=== PATIENT | male | born 1995 | race Caucasian/White ===

== ENCOUNTER 2017-02-07 17:56 | Inpatient (IN) | payer OTHER ==
[~2017-02-07] VITALS: Ht 190.5 cm; Wt 74.8 kg
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
--- NOTE | ~2017-02-07 | PN ---
Unit #: [id number] #: [id number] Patient: WESTON COULTER [id number] [facility] [address] [place] [address] [id number] MR#: [id number] NAME: WESTON COULTER ROOM: P183 Age: 21 Sex: M Admission Date: 02/07/2017 : 1995 Attending Physician: Talha Fuchs M.D. Admitting Physician: Talha Fuchs M.D. Primary Care Physician: Primary Care Physician Angie VILLEGAS PROGRESS NOTES DATE OF SERVICE: 02/10/2017 SUBJECTIVE Mr. Coulter is a 21-year-old white male, who was seen today and chart was reviewed, and case was discussed with the staff. He has been anxious, withdrawn, and rather seclusive to himself. He has been calm and cooperative with treatment recommendation and has been taking medications and tolerating them fairly well with no reported side effects. MENTAL STATUS EXAMINATION Young white male, who was casually dressed with a fair personal hygiene and appears to be in no acute distress or discomfort. He was awake and alert on interaction with intact orientation. His mood was anxious with a congruent affect. He denies any suicidal or homicidal ideations. His insight and judgment remain slightly impaired. TREATMENT PLAN 1. We will continue him on his current medications and treatment protocol. We will monitor his response to the medication and make further adjustments as needed. 2. We will continue to follow up. Dictated by... Alexis Ghosh/anam TD: 02/13/2017 01:10 JOB #: [id number] [facility] PROGRESS NOTES Page 1 of 1 X Talha Fuchs MD X PROGRESS NOTE
--- NOTE | ~2017-02-07 | PN ---
Unit #: [id number] #: [id number] Patient: WESTON COULTER [id number] [facility] [address] [place] [address] [id number] I MR#: [id number] NAME: WESTON COULTER ROOM: 83 Age: 21 Sex: M Admission Date: 02/07/2017 : 1995 Attending Physician: Talha Fuchs M.D. Admitting Physician: Talha Fuchs M.D. Primary Care Physician: Primary Care Physician Angie VILLEGAS PROGRESS NOTES DATE February 09, 2017 DISCUSSION Mr. Coulter is a 21-year-old white male, who was seen today and chart was reviewed and the case was discussed with the staff. He has been anxious, withdrawn, and rather seclusive to himself. Meanwhile, he has been cooperative with the treatment recommendations and he has been taking the medications and tolerating them fairly well. MENTAL STATUS EXAMINATION Young white male, who was casually dressed with fair personal hygiene and appears to be in no acute distress or discomfort. He was awake and alert on interaction with intact orientation. His mood is anxious with a congruent affect. He denies any suicidal or homicidal ideations. His insight and judgment remain slightly impaired. TREATMENT PLAN 1. We will continue him on his current medications and treatment protocol, and will monitor his response to the medications, and make further adjustments as needed. 2. We will continue to followup. Dictated by... Alexis Ghosh/josiah TD: 02/11/2017 10:51 JOB #: [id number] Unit #: [id number] #: [id number] Patient: WESTON COULTER PROGRESS NOTES Page 1 of 1 X Talha Fuchs MD PROGRESS NOTE
--- NOTE | ~2017-02-07 | DS ---
Unit #: [id number] #: [id number] Patient: WESTON COULTER [id number] [facility] [address] [place] [address] [id number] I MR#: [id number] NAME: WESTON COULTER ROOM: 83 Age: 21 Sex: M Admission Date: 02/07/2017 : 1995 Discharge Date: 02/11/2017 Attending Physician: Talha Fuchs M.D. Primary Care Physician: Primary Care Physician No DISCHARGE SUMMARY IDENTIFYING DATA Mr. Coulter is a 21-year-old single white male, who is a resident of [place], [place], and was self-referred to the hospital on a voluntary basis. DISCHARGE DIAGNOSES Psychiatric: Major depressive disorder, recurrent, moderate, without psychotic features; cocaine dependence, moderate. Medical: None. Stressors: Mild psychosocial stressors. HISTORY OF PRESENT ILLNESS Please see initial psychiatric evaluation for details. PAST PSYCHIATRIC HISTORY Please see initial psychiatric evaluation for details. PAST MEDICAL HISTORY Please see initial psychiatric evaluation for details. HOSPITAL COURSE The [facility] and was oriented to the hospital environment. Routine p.r.n. medications were initiated, and he was started back on his home medications and medications were adjusted and he was started on Wellbutrin and BuSpar to help with depression and anxiety and was closely monitored. He was taking the medications regularly and was tolerating them fairly well and able to come out of the detox without any complications and was willing to continue treatment on an outpatient basis and as such, it was decided that he will be kept on his current medications and will be discharged home and will continue treatment on an outpatient basis. DISCHARGE MEDICATIONS Wellbutrin XL 150 mg in the morning for depression, and BuSpar 10 mg b.i.d. for anxiety. DISCHARGE CONDITION Stable. PROGNOSIS Fair. Dictated by... Unit #: [id number] #: [id number] Patient: WESTON COULTER Alexis Ghosh/adelsol TD: 02/11/2017 06:37 JOB #: [id number] DISCHARGE SUMMARY Page 1 of 1 X Talha Fuchs MD DISCHARGE SUMMARY
[2017-02-08 09:42] LABS: BASOPHIL% 0.6 % (0-2.5); EOSINOPHIL# 0.1 X10e3 (0-0.7); EOSINOPHIL% 0.9 % (0.0-7.0); HEMATOCRIT 43.7 % (38.0-50.0); LYMPHOCYTE# 1.5 X10e3 (1.0-3.5); LYMPHOCYTE% 18.7 % (17.0-45.0); MEAN CORPUSCULAR HEMOGLOBIN 32.4 PG (28-34); MEAN CORPUSCULAR HGB CONC 34.4 g/dL (30-36); MEAN PLATELET VOLUME 7.6 FL (6.5-11.5); MONOCYTE# 0.8 X10e3 (0-1.0); MONOCYTE% 9.9 % (3.0-12.0); NEUTROPHIL# 5.6 X10e3 (1.5-7.1); NEUTROPHIL% 69.9 % (40-75); PLATELET COUNT 264 X10e3 (140-420); RED BLOOD COUNT 4.64 X10e (3.90-5.60)
[2017-02-08 09:50] LABS: DIFF IND NO
[2017-02-08 10:03] LABS: ALBUMIN SERUM 4.5 g/dL (3.5-5.0); BILIRUBIN,TOTAL 1.3 mg/dL (0.2-2.0); BUN/CREATININE RATIO 14.54; CALCIUM SERUM 9.5 mg/dL (8.4-10.2); CREATININE SERUM 1.1 mg/dL (0.6-1.4); GLOM FILT RATE Estimated 96.1 mL/min (>60); POTASSIUM 4.3 mmol/L (3.5-5.1); PROTEIN TOTAL SERUM 7.6 g/dL (6.0-8.3)
[2017-02-09 09:46] LABS: URINE APPEARANCE CLEAR; URINE BILIRUBIN NEG (NEG); URINE BLOOD NEG (NEG); URINE COLOR YELLOW; URINE GLUCOSE NEG (NEG); URINE KETONE NEG (NEG); URINE LEUKOCYTE ESTERASE NEG (NEG); URINE NITRATE NEG (NEG); URINE PH 7.5 (5-8); URINE PROTEIN NEG (NEG); URINE SPECIFIC GRAVITY 1.007 (1.003-1.035)
[2017-02-09 09:56] LABS: AMPHETAMINE NEG (NEG); BARBITURATES NEG (NEG); BENZODIAZEPINES NEG (NEG); COCAINE NEG (NEG); MARIJUANA POS (NEG); OPIATES NEG (NEG); TRICYCLIC ANTIDEPRESSANTS NEG (NEG); U METHADONE NEG (NEG)
== END 2017-02-11 10:45 | DRG 885 ==
LOC: P1E 20:01
PROVIDERS: Psychiatry & Neurology Psychiatry
PROC: HZ2ZZZZ Detoxification Services for Substance Abuse Treatment (ICD-10-PCS; principal; 2017-02-07)
DX: F33.1 Major depressive disorder, recurrent, moderate (principal); F14.20 Cocaine dependence, uncomplicated
CPT/HCPCS: 80053; 80307; 81003; 85025